=== PATIENT | female | born 1990 | race Caucasian/White ===

== ENCOUNTER 2019-10-14 21:12 | Emergency (ER) | payer OTHER ==
[~2019-10-14] VITALS: Ht 175.3 cm; Wt 109.7 kg
[2019-10-14 21:13] VITALS: BP 122/79
[2019-10-14] MEDS ORDERED: LIDOCAINE-MPF 1%, 5ML ONE (21:43)
--- NOTE | 2019-10-14 22:14 | NUR ---
PT USING SLICER AT HOME AND SLICED HER MIDDLE FINGER ON RIGHT HAND. BLEEDING CONTROLED.
[2019-10-14] MEDS ORDERED: LIDOCAINE-MPF 1%, 5ML INFIL ONE (22:30)
== END 2019-10-14 22:51 | disposition home or self-care (01) ==
LOC: ED 22:30
DX: S61.212A Laceration without foreign body of right middle finger without damage to nail, initial encounter (principal); W26.0XXA Contact with knife, initial encounter; Y93.89 Activity, other specified; Y92.090 Kitchen in other non-institutional residence as the place of occurrence of the external cause; Y99.8 Other external cause status
CPT/HCPCS: 12001; 99283